=== PATIENT | male | born 1980 | race Caucasian/White ===

== ENCOUNTER 2016-08-29 18:00 | Inpatient (IN) | payer MEDICAID ==
[~2016-08-29] VITALS: Ht 175.3 cm; Wt 84.3 kg
[~2016-08-29 18:00] MED LIST: ALPR-475 PO; AMIT100T; CLIN-60 PO; GABA600T2; GABAPENTIN; INSU100I13; INSU100V14; INSU100V4; INSU100V8; LISI5TAB7; METO10TA82; MORP60TA34 PO; MORPHINE; OXYC-302; OXYC5TAB3 PO
[2016-08-29] MEDS ORDERED: SODIUM CHLORIDE 0.9% 1,000 ML IV ONE (18:17)
[2016-08-29] MEDS ORDERED: SODIUM CHLORIDE 0.9% 1,000ML IVBOLUS ONE ×2 (18:30→19:00)
[2016-08-29] MEDS ORDERED: ONDANSETRON 2MG/ML, 2ML IVPush ONE ×2 (18:30→21:00)
[2016-08-29 18:57] LABS: PH, VENOUS 7.431 pH (7.320-7.420)
[2016-08-29] MEDS ORDERED: MORPHINE SULFATE 4 MG/ML, 1ML IVPush ONE ×2 (19:00→21:00)
[2016-08-29 19:09] LABS: BLOOD UREA NITROGEN 23 mg/dL (7-18)
[2016-08-29 19:12] LABS: ASPARTATE AMINO TRANSFERASE 23 U/L (15-37)
[2016-08-29] MEDS ORDERED: MORPHINE SULFATE 4 MG/ML, 1ML ONE ×2 (19:18→20:47)
[2016-08-29] MEDS ORDERED: ONDANSETRON 2MG/ML, 2ML ONE ×2 (19:19→20:47)
[2016-08-29] MEDS ORDERED: INSULIN REGULAR 100 UNITS/ML, 3ML VIAL ONE (20:47)
[2016-08-29] MEDS ORDERED: INSULIN REGULAR 100 UNITS/ML, 3ML VIAL IVPush ONE (21:00)
[2016-08-29 21:42] LABS: DAU SCREEN DISCLAIMER
[2016-08-29 23:05] VITALS: BP 129/80
[2016-08-30] MEDS ORDERED: LABETALOL 5MG/ML 40ML VIAL IVPush PRN (00:30)
[2016-08-30] MEDS: INSULIN ASPART 100 UNITS/ML, PEN SQ-INSULIN SCH ×5 (00:30→21:50)
[2016-08-30] MEDS ORDERED: OXYcodone IR 5MG TABLET PO PRN (01:00)
[2016-08-30] MEDS: TAMSULOSIN 0.4 MG CAP.ER.24H PO SCH ×2 (01:00→21:47)
[2016-08-30] MEDS: AMITRIPTYLINE 100 MG TABLET PO SCH ×2 (01:00→21:48)
[2016-08-30] MEDS ORDERED: SUMATRIPTAN 50 MG TABLET PO PRN (01:00)
[2016-08-30] MEDS: morphine SULFATE 10 MG/ML, 1ML IVPush PRN ×3 (01:22→09:12)
[2016-08-30] MEDS: SODIUM CHLORIDE 0.9% 1,000 ML IV SCH ×7 (01:24→19:51)
[2016-08-30] MEDS: ONDANSETRON 2MG/ML, 2ML IVPush PRN ×2 (01:24→09:12)
[2016-08-30 01:55] LABS: IS PT STATUS REG ER OR PRE ER? NO
[2016-08-30] MEDS ORDERED: INSULIN ASPART 100 UNITS/ML, PEN SQ-INSULIN ONE (02:00)
[2016-08-30 03:24] VITALS: BP 116/68
[2016-08-30 05:03] LABS: ASPARTATE AMINO TRANSFERASE 23 U/L (15-37); BLOOD UREA NITROGEN 23 mg/dL (7-18)
[2016-08-30] MEDS: INSULIN REGULAR 100 UNITS/ML, 3ML VIAL SQ-INSULIN SCH ×3 (07:00→16:41)
[2016-08-30 07:54] VITALS: BP 130/80
[2016-08-30] MEDS: METOCLOPRAMIDE 10MG TABLET PO SCH ×3 (08:16→16:42)
[2016-08-30] MEDS: GABAPENTIN 300 MG CAPSULE PO SCH ×2 (08:16→21:48)
[2016-08-30] MEDS: AMOXICILLIN/CLAV 875-125MG TABLET PO SCH ×2 (08:16→21:48)
[2016-08-30] MEDS: LISINOPRIL 5 MG TABLET PO SCH (08:17)
[2016-08-30] MEDS: morphine SULFATE 60 MG TABLET.ER PO SCH ×2 (08:19→21:00)
[2016-08-30] MEDS: INSULIN NPH HUMAN 100 UNIT/ML, 3ML VIAL SQ-INSULIN SCH ×2 (10:42→21:50)
[2016-08-30 13:54] VITALS: BP_SYST 124; BP_SYST 128; BP_SYST 137; BP_DIAS 82; BP_DIAS 83; BP_DIAS 88
[2016-08-30] MEDS: OXYcodone IR 5MG TABLET PO PRN (18:21)
[2016-08-30 18:22] VITALS: BP 133/71
[2016-08-30 19:48] VITALS: BP 140/89
[2016-08-30 21:14] LABS: POTASSIUM,URINE RANDOM 13 mmol/L
[2016-08-31] MEDS: OXYcodone IR 5MG TABLET PO PRN ×3 (04:12→16:27)
[2016-08-31 04:13] VITALS: BP 110/68
[2016-08-31] MEDS: AMOXICILLIN/CLAV 875-125MG TABLET PO SCH ×2 (07:50→21:07)
[2016-08-31] MEDS: METOCLOPRAMIDE 10MG TABLET PO SCH ×3 (07:50→16:59)
[2016-08-31] MEDS: GABAPENTIN 300 MG CAPSULE PO SCH (07:50)
[2016-08-31] MEDS: LISINOPRIL 5 MG TABLET PO SCH (07:51)
[2016-08-31] MEDS: morphine SULFATE 60 MG TABLET.ER PO SCH ×2 (07:52→21:08)
[2016-08-31 07:53] VITALS: BP 100/61
[2016-08-31] MEDS: INSULIN NPH HUMAN 100 UNIT/ML, 3ML VIAL SQ-INSULIN SCH ×2 (08:45→21:09)
[2016-08-31] MEDS: INSULIN REGULAR 100 UNITS/ML, 3ML VIAL SQ-INSULIN SCH ×3 (08:47→17:00)
[2016-08-31] MEDS: INSULIN ASPART 100 UNITS/ML, PEN SQ-INSULIN SCH ×4 (08:47→21:09)
[2016-08-31 08:50] LABS: BLOOD UREA NITROGEN 15 mg/dL (7-18)
[2016-08-31 13:06] VITALS: BP 118/68
[2016-08-31] MEDS: GABAPENTIN 400 MG CAPSULE PO SCH ×2 (16:59→21:09)
[2016-08-31 20:36] VITALS: BP 143/88
[2016-08-31] MEDS: TAMSULOSIN 0.4 MG CAP.ER.24H PO SCH (21:07)
[2016-08-31] MEDS: DULOXETINE 20 MG CAPSULE.DR PO SCH (21:07)
[2016-08-31] MEDS: AMITRIPTYLINE 100 MG TABLET PO SCH (21:07)
[2016-09-01] VITALS (7 sets, daily range): BP systolic 117–156; BP diastolic 81–107
[2016-09-01] MEDS: OXYcodone IR 5MG TABLET PO PRN ×3 (01:50→17:27)
[2016-09-01] MEDS: LISINOPRIL 5 MG TABLET PO SCH (09:00)
[2016-09-01] MEDS: morphine SULFATE 60 MG TABLET.ER PO SCH ×2 (09:00→20:52)
[2016-09-01] MEDS: METOCLOPRAMIDE 10MG TABLET PO SCH ×3 (09:29→17:26)
[2016-09-01] MEDS: AMOXICILLIN/CLAV 875-125MG TABLET PO SCH ×2 (09:29→20:51)
[2016-09-01] MEDS: GABAPENTIN 400 MG CAPSULE PO SCH ×3 (09:29→20:51)
[2016-09-01] MEDS: DULOXETINE 20 MG CAPSULE.DR PO SCH ×2 (09:29→20:51)
[2016-09-01] MEDS: INSULIN ASPART 100 UNITS/ML, PEN SQ-INSULIN SCH ×4 (09:32→21:18)
[2016-09-01] MEDS: INSULIN NPH HUMAN 100 UNIT/ML, 3ML VIAL SQ-INSULIN SCH ×2 (09:33→21:17)
[2016-09-01] MEDS: INSULIN REGULAR 100 UNITS/ML, 3ML VIAL SQ-INSULIN SCH ×3 (09:33→17:29)
[2016-09-01] MEDS: RIVAROXABAN 15 MG TABLET PO SCH (17:27)
[2016-09-01] MEDS ORDERED: SODIUM CHLORIDE 0.9% 1,000 ML IV ONE (18:00)
[2016-09-01] MEDS: AMITRIPTYLINE 100 MG TABLET PO SCH (20:51)
[2016-09-01] MEDS: METOPROLOL TARTRATE 25 MG TABLET PO SCH (20:51)
[2016-09-01] MEDS: TAMSULOSIN 0.4 MG CAP.ER.24H PO SCH (20:51)
[2016-09-02] VITALS (10 sets, daily range): BP systolic 107–143; BP diastolic 66–101
[2016-09-02] MEDS: OXYcodone IR 5MG TABLET PO PRN ×4 (02:26→22:30)
[2016-09-02] MEDS ORDERED: MORPHINE SULFATE 4 MG/ML, 1ML IVPush ONE (05:00)
[2016-09-02] MEDS: METOPROLOL TARTRATE 25 MG TABLET PO SCH ×2 (05:08→18:01)
[2016-09-02] MEDS: INSULIN ASPART 100 UNITS/ML, PEN SQ-INSULIN SCH ×4 (07:00→20:27)
[2016-09-02] MEDS: morphine SULFATE 60 MG TABLET.ER PO SCH ×2 (09:00→20:27)
[2016-09-02] MEDS: INSULIN NPH HUMAN 100 UNIT/ML, 3ML VIAL SQ-INSULIN SCH ×2 (09:00→20:26)
[2016-09-02] MEDS: AMOXICILLIN/CLAV 875-125MG TABLET PO SCH ×2 (09:16→20:27)
[2016-09-02] MEDS: RIVAROXABAN 15 MG TABLET PO SCH ×2 (09:17→16:28)
[2016-09-02] MEDS: METOCLOPRAMIDE 10MG TABLET PO SCH ×3 (09:18→16:30)
[2016-09-02] MEDS: GABAPENTIN 400 MG CAPSULE PO SCH ×3 (09:19→20:27)
[2016-09-02] MEDS: DULOXETINE 20 MG CAPSULE.DR PO SCH ×2 (09:20→20:27)
[2016-09-02] MEDS: INSULIN REGULAR 100 UNITS/ML, 3ML VIAL SQ-INSULIN SCH ×3 (09:27→16:30)
[2016-09-02] MEDS: LISINOPRIL 5 MG TABLET PO SCH (09:36)
[2016-09-02] MEDS: TAMSULOSIN 0.4 MG CAP.ER.24H PO SCH (20:27)
[2016-09-02] MEDS: AMITRIPTYLINE 50 MG TABLET PO SCH (21:00)
[2016-09-03] VITALS (15 sets, daily range): BP systolic 105–144; BP diastolic 54–93
[2016-09-03] MEDS: OXYcodone IR 5MG TABLET PO PRN ×4 (03:33→18:05)
[2016-09-03] MEDS: METOPROLOL TARTRATE 25 MG TABLET PO SCH ×2 (05:42→18:04)
[2016-09-03] MEDS: INSULIN NPH HUMAN 100 UNIT/ML, 3ML VIAL SQ-INSULIN SCH ×2 (08:00→21:42)
[2016-09-03] MEDS: INSULIN REGULAR 100 UNITS/ML, 3ML VIAL SQ-INSULIN SCH ×3 (08:00→16:49)
[2016-09-03] MEDS: RIVAROXABAN 15 MG TABLET PO SCH ×2 (08:01→16:43)
[2016-09-03] MEDS: GABAPENTIN 400 MG CAPSULE PO SCH ×3 (08:01→21:41)
[2016-09-03] MEDS: DULOXETINE 20 MG CAPSULE.DR PO SCH ×2 (08:01→21:41)
[2016-09-03] MEDS: METOCLOPRAMIDE 10MG TABLET PO SCH ×3 (08:01→16:55)
[2016-09-03] MEDS: INSULIN ASPART 100 UNITS/ML, PEN SQ-INSULIN SCH ×4 (08:01→21:00)
[2016-09-03] MEDS: morphine SULFATE 60 MG TABLET.ER PO SCH (08:02)
[2016-09-03] MEDS: LISINOPRIL 5 MG TABLET PO SCH (08:02)
[2016-09-03] MEDS: AMOXICILLIN/CLAV 875-125MG TABLET PO SCH (08:02)
[2016-09-03] MEDS: DEXTROSE 50%, 50ML SYRINGE IVPush PRN (11:49)
[2016-09-03] MEDS ORDERED: GLUCAGON 1 MG IM PRN (12:00)
[2016-09-03] MEDS ORDERED: DEXTROSE 4 GM TAB.CHEW PO PRN (12:00)
[2016-09-03] MEDS: FLUDROCORTISONE 0.1 MG TABLET PO SCH ×2 (15:03→21:41)
[2016-09-03] MEDS: AMITRIPTYLINE 50 MG TABLET PO SCH (21:00)
[2016-09-03] MEDS: SODIUM CHLORIDE FLUSH 10ML SYR IVF SCH (21:00)
[2016-09-03] MEDS: TAMSULOSIN 0.4 MG CAP.ER.24H PO SCH (21:41)
[2016-09-04 00:54] VITALS: BP 142/90
[2016-09-04] MEDS: OXYcodone IR 5MG TABLET PO PRN ×5 (02:17→19:57)
[2016-09-04] MEDS: METOPROLOL TARTRATE 25 MG TABLET PO SCH ×2 (05:32→17:29)
[2016-09-04 07:00] VITALS: BP_SYST 112; BP_SYST 121; BP_SYST 138; BP_DIAS 73; BP_DIAS 76; BP_DIAS 99
[2016-09-04 07:03] LABS: BLOOD UREA NITROGEN 33 mg/dL (7-18)
[2016-09-04] MEDS: INSULIN ASPART 100 UNITS/ML, PEN SQ-INSULIN SCH ×4 (08:17→21:00)
[2016-09-04] MEDS: GABAPENTIN 400 MG CAPSULE PO SCH ×3 (08:18→22:48)
[2016-09-04] MEDS: INSULIN NPH HUMAN 100 UNIT/ML, 3ML VIAL SQ-INSULIN SCH ×2 (08:18→22:49)
[2016-09-04] MEDS: FLUDROCORTISONE 0.1 MG TABLET PO SCH ×2 (08:18→22:48)
[2016-09-04] MEDS: DULOXETINE 20 MG CAPSULE.DR PO SCH ×2 (08:18→22:48)
[2016-09-04] MEDS: INSULIN REGULAR 100 UNITS/ML, 3ML VIAL SQ-INSULIN SCH ×3 (08:18→16:47)
[2016-09-04] MEDS: LISINOPRIL 5 MG TABLET PO SCH (08:19)
[2016-09-04] MEDS: METOCLOPRAMIDE 10MG TABLET PO SCH ×3 (08:19→16:47)
[2016-09-04] MEDS: RIVAROXABAN 15 MG TABLET PO SCH ×2 (08:19→16:47)
[2016-09-04] MEDS: SODIUM CHLORIDE FLUSH 10ML SYR IVF SCH ×2 (08:20→22:50)
[2016-09-04 12:35] VITALS: BP_SYST 105; BP_SYST 112; BP_SYST 118; BP_DIAS 61; BP_DIAS 66; BP_DIAS 68
[2016-09-04 18:46] VITALS: BP_SYST 120; BP_SYST 123; BP_SYST 126; BP_DIAS 72; BP_DIAS 77; BP_DIAS 84
[2016-09-04] MEDS: DEXTROSE 50%, 50ML SYRINGE IVPush PRN (19:58)
[2016-09-04] MEDS: CYCLOBENZAPRINE 10 MG TABLET PO SCH (22:47)
[2016-09-04] MEDS: TAMSULOSIN 0.4 MG CAP.ER.24H PO SCH (22:48)
[2016-09-05 01:29] VITALS: BP_SYST 122; BP_SYST 126; BP_SYST 138; BP_DIAS 77; BP_DIAS 86; BP_DIAS 88
[2016-09-05] MEDS: OXYcodone IR 5MG TABLET PO PRN ×2 (04:33→11:16)
[2016-09-05] MEDS: METOPROLOL TARTRATE 25 MG TABLET PO SCH ×2 (05:26→17:28)
[2016-09-05 07:41] VITALS: BP_SYST 108; BP_SYST 112; BP_SYST 97; BP_DIAS 67; BP_DIAS 70; BP_DIAS 73
[2016-09-05] MEDS: DULOXETINE 20 MG CAPSULE.DR PO SCH ×2 (08:51→21:06)
[2016-09-05] MEDS: RIVAROXABAN 15 MG TABLET PO SCH ×2 (08:51→17:28)
[2016-09-05] MEDS: METOCLOPRAMIDE 10MG TABLET PO SCH ×3 (08:51→17:28)
[2016-09-05] MEDS: LISINOPRIL 5 MG TABLET PO SCH (08:51)
[2016-09-05] MEDS: GABAPENTIN 400 MG CAPSULE PO SCH ×3 (08:51→21:07)
[2016-09-05] MEDS: FLUDROCORTISONE 0.1 MG TABLET PO SCH ×2 (08:51→21:06)
[2016-09-05] MEDS: INSULIN NPH HUMAN 100 UNIT/ML, 3ML VIAL SQ-INSULIN SCH ×2 (08:52→21:08)
[2016-09-05] MEDS: SODIUM CHLORIDE FLUSH 10ML SYR IVF SCH ×2 (08:52→21:00)
[2016-09-05] MEDS: INSULIN REGULAR 100 UNITS/ML, 3ML VIAL SQ-INSULIN SCH ×3 (08:52→17:29)
[2016-09-05] MEDS: INSULIN ASPART 100 UNITS/ML, PEN SQ-INSULIN SCH ×4 (08:52→21:08)
[2016-09-05] MEDS ORDERED: KETOROLAC 30 MG/1 ML IVPush ONE (09:30)
[2016-09-05] MEDS ORDERED: OXYcodone IR 5MG TABLET PO PRN ×2 (12:00→21:00)
[2016-09-05 12:47] VITALS: BP_SYST 113; BP_SYST 115; BP_SYST 91; BP_DIAS 52; BP_DIAS 72; BP_DIAS 76
[2016-09-05] MEDS ORDERED: KETOROLAC 30 MG/1 ML IVPush SCH (14:00)
[2016-09-05 20:14] VITALS: BP_SYST 124; BP_SYST 131; BP_SYST 134; BP_DIAS 75; BP_DIAS 83
[2016-09-05] MEDS: TAMSULOSIN 0.4 MG CAP.ER.24H PO SCH (21:06)
[2016-09-05] MEDS: CYCLOBENZAPRINE 10 MG TABLET PO SCH (21:06)
[2016-09-06] MEDS: KETOROLAC 30 MG/1 ML IVPush PRN ×2 (00:33→08:05)
[2016-09-06 01:58] VITALS: BP_SYST 114; BP_SYST 123; BP_SYST 142; BP_DIAS 67; BP_DIAS 74; BP_DIAS 78
[2016-09-06] MEDS: METOPROLOL TARTRATE 25 MG TABLET PO SCH (05:25)
[2016-09-06 06:59] VITALS: BP_SYST 118; BP_SYST 120; BP_SYST 127; BP_DIAS 77; BP_DIAS 81; BP_DIAS 82
[2016-09-06] MEDS: FLUDROCORTISONE 0.1 MG TABLET PO SCH (08:06)
[2016-09-06] MEDS: GABAPENTIN 400 MG CAPSULE PO SCH (08:06)
[2016-09-06] MEDS: RIVAROXABAN 15 MG TABLET PO SCH (08:06)
[2016-09-06] MEDS: METOCLOPRAMIDE 10MG TABLET PO SCH (08:06)
[2016-09-06] MEDS: DULOXETINE 20 MG CAPSULE.DR PO SCH (08:06)
[2016-09-06] MEDS: LISINOPRIL 5 MG TABLET PO SCH (08:07)
[2016-09-06] MEDS: SODIUM CHLORIDE FLUSH 10ML SYR IVF SCH (08:07)
[2016-09-06] MEDS: INSULIN NPH HUMAN 100 UNIT/ML, 3ML VIAL SQ-INSULIN SCH (08:07)
[2016-09-06] MEDS: INSULIN ASPART 100 UNITS/ML, PEN SQ-INSULIN SCH ×2 (08:08→11:00)
[2016-09-06] MEDS: INSULIN REGULAR 100 UNITS/ML, 3ML VIAL SQ-INSULIN SCH ×2 (08:08→11:00)
[2016-09-06] MEDS ORDERED: AMOXICILLIN/CLAV 875-125MG TABLET PO SCH (11:00)
[2016-09-06 12:46] VITALS: BP_SYST 122; BP_SYST 128; BP_SYST 129; BP_DIAS 75; BP_DIAS 80; BP_DIAS 83
[2016-09-06] MEDS ORDERED: NPH,100V SQ-INSULIN (14:14)
[2016-09-06] MEDS ORDERED: AMOX1TAB12 PO (14:14)
[2016-09-06] MEDS ORDERED: FLUD0.1T PO (14:14)
[2016-09-06] MEDS ORDERED: GABA600T2 PO (14:14)
[2016-09-06] MEDS ORDERED: IBUP800T PO (14:14)
[2016-09-06] MEDS ORDERED: CYCL-259 PO (14:14)
[2016-09-06] MEDS ORDERED: RIVA15TA PO (14:17)
[2016-09-06] MEDS ORDERED: METO25TA35 PO (14:35)
== END 2016-09-06 15:06 | disposition home or self-care (01) | DRG 683 ==
LOC: ED 22:16 → INTOOBSV 22:20 → EDIP 22:20 → 4WST 22:45 → OBSVTOIN 08-30 15:06 → 4WST 09-04 16:47
PROVIDERS: ADMIT Family Medicine; ATTEND Family Medicine
DX: N17.9 Acute kidney failure, unspecified (principal); L03.221 Cellulitis of neck; E87.1 Hypo-osmolality and hyponatremia; I82.C11 Acute embolism and thrombosis of right internal jugular vein; E10.65 Type 1 diabetes mellitus with hyperglycemia; K52.9 Noninfective gastroenteritis and colitis, unspecified; E10.43 Type 1 diabetes mellitus with diabetic autonomic (poly)neuropathy; H83.09 Labyrinthitis, unspecified ear; K31.84 Gastroparesis; E10.42 Type 1 diabetes mellitus with diabetic polyneuropathy; Z79.4 Long term (current) use of insulin; K75.9 Inflammatory liver disease, unspecified; G43.109 Migraine with aura, not intractable, without status migrainosus; Z90.49 Acquired absence of other specified parts of digestive tract; Z82.49 Family history of ischemic heart disease and other diseases of the circulatory system; K04.7 Periapical abscess without sinus; F41.9 Anxiety disorder, unspecified; E86.0 Dehydration; Z87.891 Personal history of nicotine dependence; Z88.5 Allergy status to narcotic agent; Z88.8 Allergy status to other drugs, medicaments and biological substances; Z76.5 Malingerer [conscious simulation]; R33.9 Retention of urine, unspecified; E86.1 Hypovolemia; Z86.19 Personal history of other infectious and parasitic diseases; I95.1 Orthostatic hypotension; G90.8 Other disorders of autonomic nervous system
CPT/HCPCS: 36415; 70450; 70496; 70498; 71010; 74000; 80048; 80053; 80061; 80307; 81003; 82010; 82436; 82533; 82550; 82553; 82570; 82803; 82962; 83036; 83605; 83690; 83735; 84133; 84300; 84439; 84443; 84484; 85025; 86140; 93005; 93306; 93880; 93970; 96374; 96375; 96376; G0378; J1815; J1885; J2405; J2270; J7030

== ENCOUNTER 2018-03-19 22:12 | Inpatient (IN) | payer MEDICAID ==
[~2018-03-19] VITALS: Ht 175.3 cm; Wt 80.9 kg
[~2018-03-19 22:12] MED LIST changes: +AMOX1TAB12 PO; -CLIN-60 PO; +CLIN150C14 PO; +CYCL-259 PO; +FLUD0.1T PO; +GABA600T2 PO; +IBUP-1223 PO; -LISI5TAB7; +LISI5TAB7 PO; +METO25TA35 PO; +NPH,100V SQ-INSULIN; +RIVA15TA PO
[2018-03-19] MEDS ORDERED: SODIUM CHLORIDE 0.9% 1,000ML IVBOLUS ONE (22:30)
[2018-03-19] MEDS ORDERED: SODIUM CHLORIDE FLUSH 10ML SYR IVF ONE (22:30)
[2018-03-19 22:55] LABS: PH, VENOUS 7.396 pH (7.320-7.420)
[2018-03-19 22:56] LABS: BASOPHILS # (AUTO) 0.05 x10^3/uL (0-0.1); BASOPHILS % (AUTO) 0 % (0-1); EOSINOPHILS # (AUTO) 0.11 x10^3/uL (0-0.4); EOSINOPHILS % (AUTO) 1 % (1-7); LYMPHOCYTES # (AUTO) 2.33 x10^3/uL (1-3.4); LYMPHOCYTES % (AUTO) 20 % (22-44); MD NO; MEAN CORPUSCULAR HEMOGLOBIN 31.6 pg (27.5-34.5); MEAN CORPUSCULAR VOLUME 93.1 fL (81-97); MEAN PLATELET VOLUME 8.4 fL (7.4-10.4); MONOCYTES # (AUTO) 0.76 x10^3/uL (0.2-0.8); MONOCYTES % (AUTO) 7 % (2-9); NEUTROPHILS # (AUTO) 8.28 x10^3/uL (1.8-6.8); NEUTROPHILS % (AUTO) 72 % (42-75); PLATELET COUNT 290 x10^3/uL (130-400); RED BLOOD COUNT 4.22 x10^6/uL (4.38-5.82); RED CELL DISTRIBUTION WIDTH 13.6 % (9.4-14.8)
[2018-03-19 23:10] LABS: ALANINE AMINOTRANSFERASE 29 U/L (12-78); ALBUMIN 3.2 g/dL (3.4-5.0); ANION GAP 9 mmol/L (5-15); CALCIUM 8.8 mg/dL (8.5-10.1); CHLORIDE 101 mmol/L (98-107); CREATININE 1.19 mg/dL (0.7-1.3)
[2018-03-19 23:13] LABS: ALKALINE PHOSPHATASE 176 U/L (45-117); BILIRUBIN,TOTAL 0.2 mg/dL (0.2-1.0); TOTAL PROTEIN 7.3 g/dL (6.4-8.2)
[2018-03-19 23:28] LABS: ACETAMINOPHEN < 2 mcg/mL (10-30); SALICYLATE LEVEL < 1.7 mg/dL (2.8-20.0)
[2018-03-19 23:36] LABS: ACETONE, SERUM Small (20mg/dL) mg/dL (Negative)
[2018-03-19] MEDS ORDERED: GABA300C10 PO (23:51)
[2018-03-19] MEDS ORDERED: INSU100V8 SQ (23:51)
[2018-03-20] MEDS ORDERED: INSULIN REGULAR 100 UNITS/ML, 3ML VIAL IVPush ONE
[2018-03-20 00:24] LABS: AMPHETAMINE SCREEN, URINE Negative (Negative); BARBITURATE SCREEN, URINE Negative (Negative); BENZODIAZEPINE SCREEN, URINE Negative (Negative); CANNABINOID SCREEN, URINE Positive (Negative); COCAINE SCREEN, URINE Negative (Negative); METHADONE SCREEN, URINE Negative (Negative); OPIATE SCREEN, URINE Negative (Negative)
[2018-03-20] MEDS ORDERED: DEXTROSE 50%, 50ML SYRINGE IVPush PRN (00:30)
[2018-03-20] MEDS ORDERED: GLUCAGON 1 MG IM PRN (00:30)
[2018-03-20] MEDS ORDERED: LORazepam 1MG TABLET ONE (00:30)
[2018-03-20] MEDS ORDERED: ONDANSETRON ODT 4 MG PO PRN (00:30)
[2018-03-20] MEDS ORDERED: BISACODYL 10 MG SUPP PR PRN (00:30)
[2018-03-20] MEDS ORDERED: POLYETHYLENE GLYCOL 17 GM PACKET PO PRN (00:30)
[2018-03-20] MEDS: LORazepam 1MG TABLET PO PRN ×5 (00:32→21:51)
[2018-03-20 01:18] VITALS: BP 143/83
[2018-03-20] MEDS: SODIUM CHLORIDE 0.9% 1,000 ML IV SCH ×4 (01:59→19:43)
[2018-03-20] MEDS: HEPARIN 5,000 UNITS/ML, 1ML SQ SCH ×3 (02:10→18:00)
[2018-03-20] MEDS: GABAPENTIN 300 MG CAPSULE PO SCH ×4 (02:10→21:51)
[2018-03-20 02:43] LABS: HEMOGLOBIN A1C 9.8 % (4.2-6.3)
[2018-03-20 06:23] LABS: BASOPHILS # (AUTO) 0.02 x10^3/uL (0-0.1); BASOPHILS % (AUTO) 0 % (0-1); EOSINOPHILS # (AUTO) 0.11 x10^3/uL (0-0.4); EOSINOPHILS % (AUTO) 1 % (1-7); LYMPHOCYTES % (AUTO) 26 % (22-44); MD NO; MEAN CORPUSCULAR HEMOGLOBIN 30.7 pg (27.5-34.5); MEAN CORPUSCULAR HGB CONC 33.2 g/dL (33.2-36.2); MEAN CORPUSCULAR VOLUME 92.6 fL (81-97); MEAN PLATELET VOLUME 8.6 fL (7.4-10.4); MONOCYTES # (AUTO) 0.63 x10^3/uL (0.2-0.8); MONOCYTES % (AUTO) 7 % (2-9); NEUTROPHILS # (AUTO) 5.86 x10^3/uL (1.8-6.8); NEUTROPHILS % (AUTO) 66 % (42-75); PLATELET COUNT 239 x10^3/uL (130-400); RED CELL DISTRIBUTION WIDTH 13.6 % (9.4-14.8)
[2018-03-20 06:26] LABS: CHLORIDE 106 mmol/L (98-107)
[2018-03-20 06:38] LABS: ALANINE AMINOTRANSFERASE 27 U/L (12-78); ALBUMIN 2.9 g/dL (3.4-5.0); ALKALINE PHOSPHATASE 152 U/L (45-117); ANION GAP 11 mmol/L (5-15); BILIRUBIN,TOTAL 0.4 mg/dL (0.2-1.0); CALCIUM 8.2 mg/dL (8.5-10.1); CREATININE 1.08 mg/dL (0.7-1.3); TOTAL PROTEIN 6.4 g/dL (6.4-8.2)
[2018-03-20] MEDS: METOPROLOL TARTRATE 25 MG TABLET PO SCH ×2 (07:03→18:12)
[2018-03-20] MEDS: INSULIN LISPRO 100 UNITS/ML, PEN SQ-INSULIN SCH ×3 (07:38→19:42)
[2018-03-20 08:37] VITALS: BP 136/85
[2018-03-20] MEDS ORDERED: INSULIN GLARGINE 100 UNITS/ML, PEN SQ-INSULIN SCH (09:00)
[2018-03-20] MEDS: SENNA/DOCUSATE TABLET PO SCH (09:00)
[2018-03-20] MEDS: SODIUM CHLORIDE FLUSH 10ML SYR IVF SCH ×2 (09:37→19:43)
[2018-03-20] MEDS: LISINOPRIL 5 MG TABLET PO SCH ×2 (09:37→21:50)
[2018-03-20] MEDS ORDERED: INSULIN GLARGINE 100 UNITS/ML, PEN SQ-INSULIN ONE (10:30)
[2018-03-20] MEDS ORDERED: IBUPROFEN 200 MG TABLET ONE (12:09)
[2018-03-20] MEDS ORDERED: IBUPROFEN 200 MG TABLET PO PRN (12:30)
[2018-03-20] MEDS ORDERED: KETOROLAC 10MG TABLET ONE (12:51)
[2018-03-20] MEDS: KETOROLAC 10MG TABLET PO PRN ×2 (13:25→21:50)
[2018-03-20 15:06] VITALS: BP 147/72
[2018-03-20] MEDS ORDERED: AMITRIPTYLINE 100 MG TABLET PO PRN (20:00)
[2018-03-20 21:00] VITALS: BP 146/83
[2018-03-20] MEDS ORDERED: AMITRIPTYLINE 50 MG TABLET ONE (21:44)
[2018-03-20] MEDS: INSULIN GLARGINE 100 UNITS/ML, PEN SQ-INSULIN SCH (21:49)
[2018-03-21] MEDS: SODIUM CHLORIDE 0.9% 1,000 ML IV SCH ×4 (01:31→16:55)
[2018-03-21] MEDS: INSULIN LISPRO 100 UNITS/ML, PEN SQ-INSULIN SCH ×2 (01:37→07:30)
[2018-03-21] MEDS: HEPARIN 5,000 UNITS/ML, 1ML SQ SCH ×3 (01:55→16:50)
[2018-03-21 02:47] VITALS: BP 128/76
[2018-03-21] MEDS: DEXTROSE 4 GM TAB.CHEW PO PRN (05:30)
[2018-03-21] MEDS: METOPROLOL TARTRATE 25 MG TABLET PO SCH ×2 (06:00→16:55)
[2018-03-21] MEDS: GABAPENTIN 300 MG CAPSULE PO SCH ×3 (08:36→20:22)
[2018-03-21] MEDS: LORazepam 1MG TABLET PO PRN ×4 (08:36→21:30)
[2018-03-21] MEDS: LISINOPRIL 5 MG TABLET PO SCH ×2 (08:36→20:22)
[2018-03-21] MEDS: KETOROLAC 10MG TABLET PO PRN ×2 (08:41→15:50)
[2018-03-21] MEDS: SENNA/DOCUSATE TABLET PO SCH (09:00)
[2018-03-21] MEDS: INSULIN GLARGINE 100 UNITS/ML, PEN SQ-INSULIN SCH (09:00)
[2018-03-21] MEDS: SODIUM CHLORIDE FLUSH 10ML SYR IVF SCH ×2 (09:08→20:23)
[2018-03-21] MEDS ORDERED: INSULIN GLARGINE 100 UNITS/ML, PEN SQ-INSULIN SCH ×2 (10:00→21:00)
[2018-03-21 10:04] VITALS: BP 147/92
[2018-03-21] MEDS ORDERED: QUETIAPINE 25MG TABLET PO PRN (13:30)
[2018-03-21 16:14] VITALS: BP 160/92
[2018-03-21] MEDS ORDERED: QUET25TA PO (16:35)
[2018-03-21] MEDS ORDERED: GABA300C10 PO (16:39)
[2018-03-21 18:03] VITALS: BP 145/84
[2018-03-21] MEDS ORDERED: QUETIAPINE 25MG TABLET PO SCH (21:00)
[2018-03-22] MEDS: HEPARIN 5,000 UNITS/ML, 1ML SQ SCH ×2 (02:00→09:38)
[2018-03-22] MEDS: DEXTROSE 4 GM TAB.CHEW PO PRN (05:37)
[2018-03-22 08:09] VITALS: BP 131/85
[2018-03-22] MEDS: LORazepam 1MG TABLET PO PRN (08:11)
[2018-03-22] MEDS: GABAPENTIN 300 MG CAPSULE PO SCH (08:11)
[2018-03-22] MEDS: METOPROLOL TARTRATE 25 MG TABLET PO SCH (08:11)
[2018-03-22] MEDS: LISINOPRIL 5 MG TABLET PO SCH (08:11)
[2018-03-22] MEDS: SENNA/DOCUSATE TABLET PO SCH (08:16)
[2018-03-22] MEDS: SODIUM CHLORIDE FLUSH 10ML SYR IVF SCH (08:16)
[2018-03-22] MEDS ORDERED: INSULIN GLARGINE 100 UNITS/ML, PEN SQ-INSULIN SCH ×2 (09:00→21:00)
== END 2018-03-22 11:29 | DRG 638 ==
LOC: ED 23:50 → OBSVTOIN 23:51 → INTOOBSV 23:51 → EDIP 23:51 → ED 23:58 → 4NOR 03-20 01:15 → 2N 03-21 18:02
PROVIDERS: ADMIT Internal Medicine; ATTEND Internal Medicine
DX: E10.10 Type 1 diabetes mellitus with ketoacidosis without coma (principal); E87.1 Hypo-osmolality and hyponatremia; E44.1 Mild protein-calorie malnutrition; R45.851 Suicidal ideations; T38.3X6A Underdosing of insulin and oral hypoglycemic [antidiabetic] drugs, initial encounter; E10.42 Type 1 diabetes mellitus with diabetic polyneuropathy; E10.43 Type 1 diabetes mellitus with diabetic autonomic (poly)neuropathy; G43.909 Migraine, unspecified, not intractable, without status migrainosus; F31.9 Bipolar disorder, unspecified; F12.90 Cannabis use, unspecified, uncomplicated; E10.649 Type 1 diabetes mellitus with hypoglycemia without coma; F41.0 Panic disorder [episodic paroxysmal anxiety]; K31.84 Gastroparesis; Z79.4 Long term (current) use of insulin; Z82.49 Family history of ischemic heart disease and other diseases of the circulatory system; Z90.49 Acquired absence of other specified parts of digestive tract; Z86.718 Personal history of other venous thrombosis and embolism; Z86.19 Personal history of other infectious and parasitic diseases; Z88.6 Allergy status to analgesic agent; Z68.26 Body mass index [BMI] 26.0-26.9, adult; Z91.128 Patient's intentional underdosing of medication regimen for other reason
CPT/HCPCS: 36415; 80053; 80307; 80329; 82010; 82803; 82947; 82962; 83036; 83690; 85025; G0378; J1644; G0480; J1815; J7030

== ENCOUNTER 2019-05-15 10:04 | Inpatient (IN) | payer MEDICAID ==
[~2019-05-15] VITALS: Ht 175.3 cm; Wt 75.9 kg
[~2019-05-15 10:04] MED LIST changes: -ALPR-475 PO; +ALPR0.5T7 PO; +GABA300C10 PO; -GABA600T2; -GABA600T2 PO; +GABA600T7; +GABA600T7 PO; +INSU100V8 SQ; +QUET25TA7 PO
[2019-05-15] MEDS ORDERED: SODIUM CHLORIDE 0.9% 1,000ML IVBOLUS ONE ×3 (10:30→18:00)
[2019-05-15] MEDS ORDERED: SODIUM CHLORIDE FLUSH 10ML SYR IVF ONE (10:30)
[2019-05-15] MEDS ORDERED: ONDANSETRON 2MG/ML, 2ML ONE ×2 (10:35→12:42)
--- NOTE | 2019-05-15 10:42 | NUR ---
BIB [facility] RLQ PAIN N/V AND ELEVATED BLOOD SUGAR SINCE LAST NOC STATES HAS BEEN COMPLIANT ON ALL MEDS
[2019-05-15 10:45] LABS: PH, VENOUS 7.367 pH (7.320-7.420)
[2019-05-15 10:50] LABS: BASOPHILS # (AUTO) 0.04 x10^3/uL (0-0.1); BASOPHILS % (AUTO) 0 % (0-1); EOSINOPHILS # (AUTO) 0.06 x10^3/uL (0-0.4); EOSINOPHILS % (AUTO) 0 % (1-7); LYMPHOCYTES # (AUTO) 2.04 x10^3/uL (1-3.4); LYMPHOCYTES % (AUTO) 13 % (22-44); MD NO; MEAN CORPUSCULAR HEMOGLOBIN 31.6 pg (27.5-34.5); MEAN CORPUSCULAR HGB CONC 34.2 g/dL (33.2-36.2); MEAN CORPUSCULAR VOLUME 92.4 fL (81-97); MEAN PLATELET VOLUME 10.2 fL (7.4-10.4); MONOCYTES # (AUTO) 0.44 x10^3/uL (0.2-0.8); MONOCYTES % (AUTO) 3 % (2-9); NEUTROPHILS # (AUTO) 13.78 x10^3/uL (1.8-6.8); NEUTROPHILS % (AUTO) 84 % (42-75); PLATELET COUNT 175 x10^3/uL (130-400); RED BLOOD COUNT 4.74 x10^6/uL (4.38-5.82); RED CELL DISTRIBUTION WIDTH 12.8 % (9.4-14.8)
[2019-05-15 10:59] LABS: ALBUMIN 3.4 g/dL (3.4-5.0); CALCIUM 9.2 mg/dL (8.5-10.1)
[2019-05-15] MEDS ORDERED: ONDANSETRON 2MG/ML, 2ML IVPush ONE ×2 (11:00→16:00)
[2019-05-15 11:03] LABS: ALANINE AMINOTRANSFERASE 46 U/L (12-78); ALKALINE PHOSPHATASE 259 U/L (45-117); BILIRUBIN,TOTAL 1.2 mg/dL (0.2-1.0); CREATININE 1.53 mg/dL (0.7-1.3); TOTAL PROTEIN 7.3 g/dL (6.4-8.2)
[2019-05-15 11:11] LABS: ANION GAP 16 mmol/L (5-15); CHLORIDE 92 mmol/L (98-107)
--- NOTE | 2019-05-15 11:18 | NUR ---
PT REQUESTING PAIN MEDS ERP AWARE NO NEW ORDERS ELEVATED GLUCOSE REPORTED TO ERP TO CONTINUE FLUIDS
[2019-05-15 11:35] LABS: ACETONE, SERUM Large (80mg/dL) mg/dL (Negative)
--- NOTE | 2019-05-15 11:39 | NUR ---
PT TO US AT THIS TIME
--- NOTE | 2019-05-15 13:03 | NUR ---
PT REQUESTED TO SEE ERP ERP AWARE
[2019-05-15] MEDS ORDERED: AMIT10TA PO (13:34)
[2019-05-15 14:04] LABS: ALBUMIN 3.4 g/dL (3.4-5.0); ANION GAP 20 mmol/L (5-15); CALCIUM 8.6 mg/dL (8.5-10.1); CHLORIDE 93 mmol/L (98-107)
[2019-05-15] MEDS ORDERED: MAALOX/HYOSCYAMINE/LIDOCAINE 45 ML BTL ONE (14:30)
[2019-05-15] MEDS ORDERED: SODIUM CHLORIDE 0.9% 1,000 ML IV ONE (14:42)
[2019-05-15] MEDS ORDERED: MAALOX/HYOSCYAMINE/LIDOCAINE 45 ML BTL PO ONE (15:00)
[2019-05-15] MEDS ORDERED: SODIUM CHLORIDE FLUSH 10ML SYR IVF PRN (15:00)
--- NOTE | 2019-05-15 15:03 | NUR ---
Pt to be admitted to [facility], room 494-2. Report called to Betty.
[2019-05-15] MEDS ORDERED: LACTATED RINGERS 1,000 ML IVBOLUS ONE ×2 (16:30)
[2019-05-15] MEDS ORDERED: ACETAMINOPHEN 325 MG TABLET PO PRN (17:00)
[2019-05-15] MEDS ORDERED: ENALAPRILAT 1.25 MG/ML, 2ML IVPush PRN (17:00)
[2019-05-15] MEDS ORDERED: GLUCAGON 1 MG IM PRN (17:00)
[2019-05-15] MEDS ORDERED: INSULIN LISPRO 100 UNIT/ML, 3ML VIAL SQ-INSULIN ONE (17:00)
[2019-05-15] MEDS ORDERED: DEXTROSE 4 GM TAB.CHEW PO PRN (17:00)
[2019-05-15] MEDS ORDERED: DEXTROSE 50%, 50ML SYRINGE IVPush PRN (17:00)
[2019-05-15] MEDS ORDERED: PROMETHAZINE 25 MG/ML, 1ML IM PRN (18:30)
[2019-05-15 19:20] LABS: ALANINE AMINOTRANSFERASE 52 U/L (12-78); ALBUMIN 3.8 g/dL (3.4-5.0); ANION GAP 25 mmol/L (5-15); CALCIUM 8.8 mg/dL (8.5-10.1); CHLORIDE 97 mmol/L (98-107); CREATININE 1.74 mg/dL (0.7-1.3)
[2019-05-15 19:22] LABS: ALKALINE PHOSPHATASE 262 U/L (45-117); BILIRUBIN,TOTAL 0.5 mg/dL (0.2-1.0); TOTAL PROTEIN 7.8 g/dL (6.4-8.2)
[2019-05-15] MEDS ORDERED: CARV12.5 PO (19:37)
[2019-05-15] MEDS ORDERED: TAMS-11 PO (19:37)
[2019-05-15] MEDS ORDERED: LISI-167 PO (19:37)
[2019-05-15] MEDS ORDERED: SUMA50TA4 PO (19:37)
[2019-05-15] MEDS ORDERED: GABA800T5 PO (19:37)
[2019-05-15] MEDS ORDERED: SUMATRIPTAN 100 MG TABLET ONE (20:18)
[2019-05-15] MEDS: FAMOTIDINE 20 MG/2 ML IVPush SCH (20:18)
[2019-05-15] MEDS: SUMATRIPTAN 50 MG TABLET PO PRN (20:19)
[2019-05-15] MEDS: HEPARIN 5,000 UNITS/ML, 1ML SQ SCH ×2 (20:20→20:29)
[2019-05-15 20:24] VITALS: BP 141/73
[2019-05-15] MEDS: INSULIN LISPRO 100 UNITS/ML, PEN SQ-INSULIN SCH (20:26)
[2019-05-15] MEDS ORDERED: INSULIN LISPRO 100 UNITS/ML, PEN SQ-INSULIN SCH (21:00)
[2019-05-15 21:40] LABS: ALANINE AMINOTRANSFERASE 48 U/L (12-78); ALBUMIN 3.5 g/dL (3.4-5.0); ANION GAP 15 mmol/L (5-15); CALCIUM 8.7 mg/dL (8.5-10.1); CHLORIDE 100 mmol/L (98-107); CREATININE 1.63 mg/dL (0.7-1.3)
[2019-05-15 21:41] LABS: ALKALINE PHOSPHATASE 243 U/L (45-117); BILIRUBIN,TOTAL 0.6 mg/dL (0.2-1.0); TOTAL PROTEIN 7.3 g/dL (6.4-8.2)
[2019-05-15 21:59] LABS: MICROSCOPIC NOT IND
[2019-05-15] MEDS: SODIUM CHLORIDE 0.9% 1,000 ML IV SCH (22:00)
[2019-05-15 22:12] LABS: AMPHETAMINE SCREEN, URINE Negative (Negative); BARBITURATE SCREEN, URINE Negative (Negative); BENZODIAZEPINE SCREEN, URINE Negative (Negative); CANNABINOID SCREEN, URINE Positive (Negative); COCAINE SCREEN, URINE Negative (Negative); METHADONE SCREEN, URINE Negative (Negative); OPIATE SCREEN, URINE Negative (Negative)
[2019-05-15] MEDS: AMITRIPTYLINE 10 MG TABLET PO SCH (23:01)
[2019-05-15] MEDS: SODIUM CHLORIDE FLUSH 10ML SYR IVF SCH (23:01)
[2019-05-15] MEDS: GABAPENTIN 400 MG CAPSULE PO SCH (23:01)
[2019-05-16] MEDS ORDERED: INSULIN LISPRO 100 UNITS/ML, PEN SQ-INSULIN SCH
[2019-05-16] MEDS ORDERED: SUMATRIPTAN 100 MG TABLET ONE
[2019-05-16] MEDS: SUMATRIPTAN 50 MG TABLET PO PRN (00:04)
[2019-05-16] MEDS: INSULIN LISPRO 100 UNITS/ML, PEN SQ-INSULIN SCH ×6 (00:05→20:34)
[2019-05-16] MEDS: SODIUM CHLORIDE 0.9% 1,000 ML IV SCH ×5 (00:05→17:13)
[2019-05-16 01:13] VITALS: BP 109/67
[2019-05-16] MEDS: HEPARIN 5,000 UNITS/ML, 1ML SQ SCH ×3 (03:54→20:35)
[2019-05-16] MEDS: ONDANSETRON 2MG/ML, 2ML IVPush PRN (06:39)
[2019-05-16 06:52] VITALS: BP_SYST 103; BP_SYST 147; BP_DIAS 65; BP_DIAS 78
[2019-05-16 07:14] LABS: MEAN CORPUSCULAR HEMOGLOBIN 31.1 pg (27.5-34.5); MEAN CORPUSCULAR HGB CONC 33.3 g/dL (33.2-36.2); MEAN CORPUSCULAR VOLUME 93.4 fL (81-97); MEAN PLATELET VOLUME 9.5 fL (7.4-10.4); PLATELET COUNT 170 x10^3/uL (130-400); RED BLOOD COUNT 4.24 x10^6/uL (4.38-5.82); RED CELL DISTRIBUTION WIDTH 13.3 % (9.4-14.8)
[2019-05-16 07:19] LABS: ANION GAP 12 mmol/L (5-15); CALCIUM 8.3 mg/dL (8.5-10.1); CHLORIDE 105 mmol/L (98-107)
[2019-05-16 07:21] LABS: CREATININE 1.22 mg/dL (0.7-1.3)
[2019-05-16 07:48] LABS: BASOPHILS # (AUTO) 0.03 x10^3/uL (0-0.1); BASOPHILS % (AUTO) 0 % (0-1); EOSINOPHILS # (AUTO) 0.05 x10^3/uL (0-0.4); EOSINOPHILS % (AUTO) 0 % (1-7); LYMPHOCYTES # (AUTO) 2.32 x10^3/uL (1-3.4); LYMPHOCYTES % (AUTO) 13 % (22-44); MD SCAN; MONOCYTES # (AUTO) 0.82 x10^3/uL (0.2-0.8); MONOCYTES % (AUTO) 4 % (2-9); NEUTROPHILS # (AUTO) 15.27 x10^3/uL (1.8-6.8); NEUTROPHILS % (AUTO) 83 % (42-75)
[2019-05-16] MEDS: GABAPENTIN 400 MG CAPSULE PO SCH ×3 (08:04→20:35)
[2019-05-16] MEDS: TAMSULOSIN 0.4 MG CAP.ER.24H PO SCH (08:05)
[2019-05-16] MEDS: FAMOTIDINE 20 MG/2 ML IVPush SCH ×2 (08:05→20:35)
[2019-05-16] MEDS: LISINOPRIL 10 MG TABLET PO SCH (08:05)
[2019-05-16] MEDS: SODIUM CHLORIDE FLUSH 10ML SYR IVF SCH ×2 (08:11→20:34)
[2019-05-16 08:55] LABS: INTERNATIONAL NORMALIZED RATIO 1.01 (0.93-1.1); PROTHROMBIN TIME 10.7 Seconds (9.6-11.5)
[2019-05-16] MEDS ORDERED: KETOROLAC 30 MG/1 ML IVPush ONE (09:00)
[2019-05-16 09:07] LABS: HCT (SEDRATE) 39.6 % (39.2-51.8)
[2019-05-16] MEDS ORDERED: MORPHINE SULFATE 4 MG/ML, 1ML IVPush ONE (11:00)
[2019-05-16] MEDS ORDERED: LIDOCAINE-MPF 1%, 5ML ONE (11:23)
[2019-05-16 13:03] VITALS: BP 118/62
[2019-05-16 14:29] LABS: ANION GAP 10 mmol/L (5-15); CALCIUM 7.8 mg/dL (8.5-10.1); CHLORIDE 110 mmol/L (98-107)
[2019-05-16 14:30] LABS: CREATININE 1.32 mg/dL (0.7-1.3)
[2019-05-16] MEDS ORDERED: hydrOXyzine 10 MG/5 ML ORAL SOL PO PRN (16:30)
[2019-05-16 19:19] VITALS: BP 148/83
[2019-05-16] MEDS ORDERED: SUMATRIPTAN 25 MG TABLET ONE (20:23)
[2019-05-16] MEDS: SUMATRIPTAN 25 MG TABLET PO PRN (20:35)
[2019-05-16] MEDS: AMITRIPTYLINE 10 MG TABLET PO SCH (20:35)
[2019-05-17] MEDS: INSULIN LISPRO 100 UNITS/ML, PEN SQ-INSULIN SCH ×6 (01:02→21:35)
[2019-05-17] MEDS: SODIUM CHLORIDE 0.9% 1,000 ML IV SCH (01:03)
[2019-05-17 02:47] VITALS: BP 148/84
[2019-05-17] MEDS: HEPARIN 5,000 UNITS/ML, 1ML SQ SCH ×3 (04:22→21:35)
[2019-05-17 05:16] LABS: ALBUMIN 2.5 g/dL (3.4-5.0); ANION GAP 9 mmol/L (5-15); CALCIUM 7.9 mg/dL (8.5-10.1); CHLORIDE 109 mmol/L (98-107)
[2019-05-17 05:20] LABS: ALANINE AMINOTRANSFERASE 26 U/L (12-78); ALKALINE PHOSPHATASE 160 U/L (45-117); BILIRUBIN,TOTAL 0.3 mg/dL (0.2-1.0); CREATININE 1.12 mg/dL (0.7-1.3); TOTAL PROTEIN 5.3 g/dL (6.4-8.2)
[2019-05-17 05:36] LABS: BASOPHILS # (AUTO) 0.02 x10^3/uL (0-0.1); BASOPHILS % (AUTO) 0 % (0-1); EOSINOPHILS # (AUTO) 0.16 x10^3/uL (0-0.4); EOSINOPHILS % (AUTO) 2 % (1-7); LYMPHOCYTES # (AUTO) 2.86 x10^3/uL (1-3.4); LYMPHOCYTES % (AUTO) 26 % (22-44); MD NO; MEAN CORPUSCULAR HEMOGLOBIN 31.3 pg (27.5-34.5); MEAN CORPUSCULAR HGB CONC 33.8 g/dL (33.2-36.2); MEAN CORPUSCULAR VOLUME 92.6 fL (81-97); MEAN PLATELET VOLUME 9.1 fL (7.4-10.4); MONOCYTES # (AUTO) 0.58 x10^3/uL (0.2-0.8); MONOCYTES % (AUTO) 5 % (2-9); NEUTROPHILS # (AUTO) 7.27 x10^3/uL (1.8-6.8); NEUTROPHILS % (AUTO) 67 % (42-75); PLATELET COUNT 153 x10^3/uL (130-400); RED BLOOD COUNT 4.04 x10^6/uL (4.38-5.82); RED CELL DISTRIBUTION WIDTH 13.7 % (9.4-14.8)
[2019-05-17] MEDS: NS + 20MEQ KCL 1,000 ML IV SCH ×2 (06:30→17:41)
[2019-05-17 08:40] VITALS: BP 137/71
[2019-05-17] MEDS ORDERED: FAMOTIDINE 40 MG TABLET ONE ×2 (08:58→21:28)
[2019-05-17] MEDS: GABAPENTIN 400 MG CAPSULE PO SCH ×3 (09:10→21:34)
[2019-05-17] MEDS: FAMOTIDINE 20 MG TABLET PO SCH ×2 (09:10→21:35)
[2019-05-17] MEDS: SUMATRIPTAN 25 MG TABLET PO PRN (09:13)
[2019-05-17] MEDS: TAMSULOSIN 0.4 MG CAP.ER.24H PO SCH (09:14)
[2019-05-17] MEDS: LISINOPRIL 10 MG TABLET PO SCH (09:14)
[2019-05-17] MEDS: SODIUM CHLORIDE FLUSH 10ML SYR IVF SCH ×2 (09:15→21:35)
[2019-05-17] MEDS: ONDANSETRON 2MG/ML, 2ML IVPush PRN (13:03)
[2019-05-17 13:06] VITALS: BP 145/83
[2019-05-17] MEDS: METHOCARBAMOL 500 MG TABLET PO PRN ×2 (15:25→22:30)
[2019-05-17] MEDS ORDERED: OMNIPAQUE 350 MG/ML, 100ML BOTTLE ONE (17:30)
[2019-05-17] MEDS: AMITRIPTYLINE 10 MG TABLET PO SCH (21:34)
[2019-05-17] MEDS: INSULIN GLARGINE 100 UNITS/ML, PEN SQ-INSULIN SCH (21:35)
[2019-05-17 22:00] VITALS: BP 137/79
[2019-05-18 00:31] VITALS: BP 140/80
[2019-05-18] MEDS: INSULIN LISPRO 100 UNITS/ML, PEN SQ-INSULIN SCH ×3 (01:12→08:06)
[2019-05-18] MEDS: NS + 20MEQ KCL 1,000 ML IV SCH ×2 (01:15→08:47)
[2019-05-18] MEDS: HEPARIN 5,000 UNITS/ML, 1ML SQ SCH ×2 (04:57→11:48)
[2019-05-18] MEDS: METHOCARBAMOL 500 MG TABLET PO PRN ×2 (05:00→11:25)
[2019-05-18 06:19] LABS: ANION GAP 7 mmol/L (5-15); CALCIUM 8.1 mg/dL (8.5-10.1); CHLORIDE 109 mmol/L (98-107); CREATININE 0.97 mg/dL (0.7-1.3)
[2019-05-18 06:20] LABS: BASOPHILS # (AUTO) 0.01 x10^3/uL (0-0.1); BASOPHILS % (AUTO) 0 % (0-1); EOSINOPHILS # (AUTO) 0.12 x10^3/uL (0-0.4); EOSINOPHILS % (AUTO) 2 % (1-7); LYMPHOCYTES # (AUTO) 2.22 x10^3/uL (1-3.4); LYMPHOCYTES % (AUTO) 32 % (22-44); MD NO; MEAN CORPUSCULAR HEMOGLOBIN 31.3 pg (27.5-34.5); MEAN CORPUSCULAR HGB CONC 33.5 g/dL (33.2-36.2); MEAN CORPUSCULAR VOLUME 93.7 fL (81-97); MEAN PLATELET VOLUME 8.6 fL (7.4-10.4); MONOCYTES # (AUTO) 0.43 x10^3/uL (0.2-0.8); MONOCYTES % (AUTO) 6 % (2-9); NEUTROPHILS # (AUTO) 4.13 x10^3/uL (1.8-6.8); NEUTROPHILS % (AUTO) 60 % (42-75); PLATELET COUNT 162 x10^3/uL (130-400); RED BLOOD COUNT 4.22 x10^6/uL (4.38-5.82); RED CELL DISTRIBUTION WIDTH 13.7 % (9.4-14.8)
[2019-05-18 06:37] VITALS: BP 152/89
[2019-05-18] MEDS ORDERED: FAMOTIDINE 40 MG TABLET ONE (08:43)
[2019-05-18] MEDS: INSULIN GLARGINE 100 UNITS/ML, PEN SQ-INSULIN SCH (08:47)
[2019-05-18] MEDS: SODIUM CHLORIDE FLUSH 10ML SYR IVF SCH (08:48)
[2019-05-18] MEDS: FAMOTIDINE 20 MG TABLET PO SCH (08:48)
[2019-05-18] MEDS: TAMSULOSIN 0.4 MG CAP.ER.24H PO SCH (08:48)
[2019-05-18] MEDS: LISINOPRIL 10 MG TABLET PO SCH (08:48)
[2019-05-18] MEDS: GABAPENTIN 400 MG CAPSULE PO SCH (08:48)
[2019-05-18] MEDS ORDERED: HYDR-826 PO (11:15)
[2019-05-18] MEDS ORDERED: METH500T7 PO (11:15)
[2019-05-18] MEDS ORDERED: INSU100V9 IM (11:42)
[2019-05-18] MEDS ORDERED: INSU100V8 SQ (11:42)
== END 2019-05-18 12:28 | disposition home or self-care (01) | DRG 871 ==
LOC: ED 11:21 → 4EST 14:42 → 4WST 05-16 00:27 → DCLOUNGE 05-18 12:12
PROVIDERS: ADMIT Emergency Medicine; ATTEND Emergency Medicine
PROC: 009U3ZX Drainage of Spinal Canal, Percutaneous Approach, Diagnostic (ICD-10-PCS; principal; 2019-05-16)
DX: A41.9 Sepsis, unspecified organism (principal); E10.10 Type 1 diabetes mellitus with ketoacidosis without coma; N17.0 Acute kidney failure with tubular necrosis; E87.1 Hypo-osmolality and hyponatremia; F19.20 Other psychoactive substance dependence, uncomplicated; E10.43 Type 1 diabetes mellitus with diabetic autonomic (poly)neuropathy; E86.0 Dehydration; F12.10 Cannabis abuse, uncomplicated; F41.9 Anxiety disorder, unspecified; K31.84 Gastroparesis; Z79.4 Long term (current) use of insulin; Z79.899 Other long term (current) drug therapy; Z82.49 Family history of ischemic heart disease and other diseases of the circulatory system; Z88.6 Allergy status to analgesic agent; Z87.891 Personal history of nicotine dependence; Z88.8 Allergy status to other drugs, medicaments and biological substances
CPT/HCPCS: 36415; 84145; 89051; 96361; 96374; 99285; J3490; 62328; 70450; 71045; 72132; 76700; 80048; 80053; 80307; 81003; 82010; 82040; 82803; 82947; 82962; 83036; 83690; 85025; 85610; 85651; 86140; 87040; 87070; 87205; 87633; 93005; G0378; J1644; J2405; J3480; Q9967; J1815; J1817; J2270; J7030; J7120; Q0177